=== PATIENT | male | born 1945 | race Caucasian/White ===

== ENCOUNTER 2017-04-14 17:52 | Inpatient (IN) | payer OTHER ==
[~2017-04-14] VITALS: Ht 185.4 cm; Wt 97.3 kg
[~2017-04-14 17:52] MED LIST: ADULT LOW STREN81 M3 PO; ADVAIR 100/501 DISK IH; ADVAIR 250-501 EACH IH; ADVAIR 250/501 DISK IH; ADVAIR HFA120 INHAL1 IH; ASCORBIC ACID500 M3 PO; ASPIR 8181 M1 PO; ASPIR-LOW81 MG PO; ASPIRIN E.C.81 M1 PO; ASPIRIN325 MG PO; ATORVASTATIN CA40 MG PO; Advair HFA 115/21 IH; Aspirin E.C. PO; BENICAR20 MG PO; BENICAR40 MG PO; CARBIDOPA/LEVO1 EACH PO; CO Q-1010 MG PO; COLACE100 MG PO; CONZIP100 MG PO; COUMADIN,JANTOVE5 MG PO; CRESTOR20 MG PO; Cordarone, Pacerone PO; DIGOXIN250 MCG PO; DIOVAN160 MG PO; DOCUSATE SODIU100 MG PO; ELIQUIS5 MG PO; FISH OIL 1,2001 EAC4 PO; FLONASE16 G1 ALT NARES; FOLIC ACID1 MG PO; FUROSEMIDE20 MG PO; FUROSEMIDE40 MG PO; GLIPIZIDE XL5 MG PO; GLIPIZIDE10 MG PO; GLIPIZIDE5 M1 PO; GLIPIZIDE5 MG PO; GLUCOTROL5 MG PO; Glucotrol PO; HYDROCODON-ACE1 EAC7 PO; JANUVIA100 MG PO; K-DUR20 MEQ PO; KLONOPIN0.5 M1 PO; KLOR-CON 1010 ME1 PO; KlonoPIN PO; Klonopin PO; LASIX20 MG PO; LASIX40 MG PO; LISINOPRIL2.5 MG PO; LORATADINE10 M2 PO; LORTAB 7.5/51 TABLET PO; LOVENOX100 MG/1 M SC; Levaquin PO; METOPROLOL SUCC25 MG PO; METOPROLOL TART25 MG PO; MIRALAX17 GM PO; NEURONTIN100 MG PO; PARAFON FORTE500 MG PO; PERCOCET 5/31 TABLET PO; PLAVIX75 MG PO; POLYETHYLENE GL17 GM PO; POTASSIUM CHLO20 ME1 PO; PRADAXA150 MG PO; PROTONIX40 MG PO; PROVENTIL,2.5 MG/3 M IH; Proventil,Ventolin H IH; ROPINIROLE HCL4 MG PO; SENNA-TIME S T1 EACH PO; SENOKOT S,PE1 TABLET PO; SIMVASTATIN40 MG PO; SINEMET CR 50-1 EACH PO; SPIRIVA1 INHALATI IH; SYMBICORT60 INHALAT IH; THERAGRAN1 TABLET PO; TRAMADOL HCL50 MG PO; TRICOR145 MG PO; Tylenol Extra Streng PO; VENTOLIN HFA18 GM IH; VENTOLIN17 GM IH; VITAMIN D31000 UNIT PO; VITAMIN E400 UNIT PO; ZOCOR5 MG PO; ZYRTEC10 M3 PO; Zocor PO
[2017-04-14 18:26] LABS: HEMATOCRIT 42.6 % (38.0-50.0); MCH 29.4 PG (29.0-34.0); MCHC 33.1 G/DL (30.0-36.0); MCV 88.8 FL (86-99); PLATELET COUNT 118 K/uL (156-360); RBC DIS.WIDTH-CV 13.8 % (11.8-14.6); RBC DIS.WIDTH-SD 44.8 % (39-53); WHITE BLOOD COUNT 9.5 K/uL (4.1-10.2)
[2017-04-14 19:09] LABS: CHLORIDE 101 mEq/L (99-109); POTASSIUM 4.5 mEq/L (3.7-5.4); SODIUM 136 mEq/L (136-147)
[2017-04-14 19:10] LABS: GLUCOSE 158 mg/dL (70-99)
[2017-04-14 19:12] LABS: ANION GAP 12 MEQ/L (2-14)
[2017-04-14 19:14] LABS: GFR ESTIMATE (CALCULATED) 49 mL/min/
[2017-04-14 19:15] LABS: UREA NITROGEN (BUN) 22 mg/dL (9-23)
[2017-04-14 20:15] LABS: ADD MIUA? YES; BILIRUBIN NEGATIVE; BLOOD LARGE; COLOR YELLOW ((YELLOW)); GLUCOSE (STRIP) NEGATIVE; KETONES 5; LEUKOCYTES NEGATIVE; NITRITE NEGATIVE; PROTEIN (STRIP) 30; SPECIFIC GRAVITY 1.017 (1.000-1.030)
[2017-04-14 20:27] LABS: BACTERIA NONE SEEN /HPF; EPITHELIAL CELLS RARE /HPF; MUCUS NONE SEEN /LPF; RED BLOOD CELLS TNTC /HPF (0-5); UCUL ADDED? YES; UNCLASSIFIED CRYSTALS 1+ /HPF; WHITE BLOOD CELLS 0-5 /HPF (0-5)
[2017-04-14] MEDS ORDERED: VENTOLIN HFA18 GM IH (23:24)
[2017-04-14] MEDS ORDERED: REQUIP1 MG PO (23:28)
[2017-04-14] MEDS ORDERED: KLOR-CON M2020 MEQ PO (23:28)
[2017-04-14] MEDS ORDERED: CO Q-10200 MG PO (23:35)
[2017-04-14] MEDS ORDERED: B-121000 MC2 PO (23:36)
[2017-04-14] MEDS ORDERED: PREDNISOLONE AC15 ML LEFT EYE (23:37)
[2017-04-14] MEDS ORDERED: PROLENSA3 ML LEFT EYE (23:37)
[2017-04-14] MEDS ORDERED: ZESTRIL2.5 MG PO (23:37)
[2017-04-15] VITALS (8 sets, daily range): BP systolic 101–130; BP diastolic 55–70
[2017-04-15 09:44] LABS: MCH 30.3 PG (29.0-34.0); MCHC 33.7 G/DL (30.0-36.0); MCV 89.9 FL (86-99); MEAN PLAT.VOLUME 9.9 uM^3 (9.0-12.4); PLATELET COUNT 108 K/uL (156-360); RBC DIS.WIDTH-CV 13.9 % (11.8-14.6); RBC DIS.WIDTH-SD 45.3 % (39-53); RED BLOOD COUNT 4.56 M/uL (4.00-5.50); WHITE BLOOD COUNT 11.1 K/uL (4.1-10.2)
[2017-04-15 11:08] LABS: ANION GAP 9 MEQ/L (2-14); CHLORIDE 102 MEQ/L (99-109); GFR ESTIMATE (CALCULATED) > 59 mL/min/; GLUCOSE 149 mg/dL (70-99); POTASSIUM 4.4 MEQ/L (3.7-5.4); SAMPLE HEMOLYSIS CHECK 0; SAMPLE ICTERIC CHECK 0; SAMPLE LIPEMIA CHECK 0; SODIUM 138 MEQ/L (136-147); UREA NITROGEN (BUN) 20 mg/dL (9-23)
[2017-04-15 13:44] LABS: POINT-OF-CARE METER ID UU13113675
[2017-04-15 21:04] LABS: POINT-OF-CARE METER ID UU14208753
[2017-04-16 04:00] VITALS: BP 109/64
[2017-04-16 06:22] LABS: HEMATOCRIT 40.1 % (38.0-50.0); MCH 28.9 PG (29.0-34.0); MCHC 31.9 G/DL (30.0-36.0); MCV 90.5 FL (86-99); MEAN PLAT.VOLUME 10.2 uM^3 (9.0-12.4); PLATELET COUNT 107 K/uL (156-360); RBC DIS.WIDTH-CV 13.8 % (11.8-14.6); RED BLOOD COUNT 4.43 M/uL (4.00-5.50); WHITE BLOOD COUNT 8.3 K/uL (4.1-10.2)
[2017-04-16 06:45] LABS: ANION GAP 8 MEQ/L (2-14); CHLORIDE 101 MEQ/L (99-109); GFR ESTIMATE (CALCULATED) > 59 mL/min/; GLUCOSE 126 mg/dL (70-99); POTASSIUM 4.4 MEQ/L (3.7-5.4); SAMPLE HEMOLYSIS CHECK 0; SAMPLE ICTERIC CHECK 0; SAMPLE LIPEMIA CHECK 0; SODIUM 138 MEQ/L (136-147); UREA NITROGEN (BUN) 24 mg/dL (9-23)
[2017-04-16 07:03] LABS: POINT-OF-CARE METER ID UU14208753
[2017-04-16 07:24] VITALS: BP 120/68
[2017-04-16 11:05] VITALS: BP 110/58
[2017-04-16 11:29] LABS: POINT-OF-CARE METER ID UU14188577
[2017-04-16 15:20] VITALS: BP 134/76
[2017-04-16 17:09] LABS: POINT-OF-CARE METER ID UU14208753
[2017-04-16 19:56] VITALS: BP 114/64
[2017-04-16 21:56] LABS: POINT-OF-CARE METER ID UU14117124
[2017-04-17 00:02] VITALS: BP 99/63
[2017-04-17 07:24] VITALS: BP 124/65
[2017-04-17 09:28] LABS: HEMATOCRIT 44.5 % (38.0-50.0); MCH 29.8 PG (29.0-34.0); MCHC 32.6 G/DL (30.0-36.0); MCV 91.6 FL (86-99); MEAN PLAT.VOLUME 10.1 uM^3 (9.0-12.4); PLATELET COUNT 120 K/uL (156-360); RBC DIS.WIDTH-CV 13.8 % (11.8-14.6); RBC DIS.WIDTH-SD 46.5 % (39-53); RED BLOOD COUNT 4.86 M/uL (4.00-5.50); WHITE BLOOD COUNT 8.3 K/uL (4.1-10.2)
[2017-04-17 09:56] LABS: ANION GAP 10 MEQ/L (2-14); CHLORIDE 98 MEQ/L (99-109); GFR ESTIMATE (CALCULATED) > 59 mL/min/; POTASSIUM 4.1 MEQ/L (3.7-5.4); SAMPLE HEMOLYSIS CHECK 0; SAMPLE ICTERIC CHECK 0; SAMPLE LIPEMIA CHECK 0; SODIUM 136 MEQ/L (136-147); UREA NITROGEN (BUN) 23 mg/dL (9-23)
[2017-04-17 09:58] LABS: GLUCOSE 194 mg/dL (70-99)
== END 2017-04-17 12:20 | disposition home or self-care (01) | DRG 694 ==
LOC: EME 17:52 → 3EAST 04-15 00:14 → EDOF 04-15 00:14 → ENRESERV 04-15 00:22 → 3EAST 04-15 01:30
PROVIDERS: Hospitalist; Physician Assistant
PROC: 5A09357 Assistance with Respiratory Ventilation, Less than 24 Consecutive Hours, Continuous Positive Airway Pressure (ICD-10-PCS; principal; 2017-04-15)
PROC: 0T768DZ Dilation of Right Ureter with Intraluminal Device, Via Natural or Artificial Opening Endoscopic (ICD-10-PCS; 2017-04-15)
DX: N20.2 Calculus of kidney with calculus of ureter (principal); N17.9 Acute kidney failure, unspecified; R31.0 Gross hematuria; T45.515A Adverse effect of anticoagulants, initial encounter; D69.6 Thrombocytopenia, unspecified; I11.9 Hypertensive heart disease without heart failure; I25.10 Atherosclerotic heart disease of native coronary artery without angina pectoris; I25.5 Ischemic cardiomyopathy; J44.9 Chronic obstructive pulmonary disease, unspecified; E11.9 Type 2 diabetes mellitus without complications; E78.5 Hyperlipidemia, unspecified; G47.33 Obstructive sleep apnea (adult) (pediatric); G20 Parkinson's disease; E66.9 Obesity, unspecified; Z68.28 Body mass index [BMI] 28.0-28.9, adult; Z95.1 Presence of aortocoronary bypass graft; Z79.01 Long term (current) use of anticoagulants; Z79.51 Long term (current) use of inhaled steroids; Z79.82 Long term (current) use of aspirin; Z79.84 Long term (current) use of oral hypoglycemic drugs; Z86.711 Personal history of pulmonary embolism; Z86.718 Personal history of other venous thrombosis and embolism; Z95.828 Presence of other vascular implants and grafts; Z87.442 Personal history of urinary calculi; Z86.79 Personal history of other diseases of the circulatory system; Z87.891 Personal history of nicotine dependence
CPT/HCPCS: 74176; 80048; 81003; 82948; 83605; 85027; 87086 GA; 93005; 94640; 94640 76; 94660; 94760; 94799; 99202; 99281; 99285; C1758; C1769; C1876; J0692; J1815; J2270; J2405; J3010; J7030; J7040; S0028

== ENCOUNTER → 2017-06-08 | Outpatient (CLI) | payer OTHER ==
[~2017-06-08] MED LIST changes: +B-121000 MC2 PO; +CO Q-10200 MG PO; +KLOR-CON M2020 MEQ PO; +PREDNISOLONE AC15 ML LEFT EYE; +PROLENSA3 ML LEFT EYE; +REQUIP1 MG PO; +ZESTRIL2.5 MG PO
[2017-06-08 09:46] LABS: POINT-OF-CARE METER ID UU14107333
== END | disposition home or self-care (01) ==
LOC: AMB 08:20
PROVIDERS: Urology
PROC: 0TF6XZZ Fragmentation in Right Ureter, External Approach (ICD-10-PCS; principal; 2017-06-08)
DX: N20.2 Calculus of kidney with calculus of ureter (principal); I10 Essential (primary) hypertension; J44.9 Chronic obstructive pulmonary disease, unspecified; E11.9 Type 2 diabetes mellitus without complications; I48.92 Unspecified atrial flutter; K21.9 Gastro-esophageal reflux disease without esophagitis; E78.5 Hyperlipidemia, unspecified; Z79.82 Long term (current) use of aspirin; Z95.1 Presence of aortocoronary bypass graft; Z87.891 Personal history of nicotine dependence; Z86.718 Personal history of other venous thrombosis and embolism; Z79.01 Long term (current) use of anticoagulants
CPT/HCPCS: 74010; 82948; J0690; J1580; J2405; J3010